=== PATIENT | female | born 1935 | race Caucasian/White ===

== ENCOUNTER 2018-06-11 11:23 | Emergency (ER) | payer MEDICARE, BC ==
--- OUTSIDE RECORDS SUMMARY | 2018-06-11 11:30 | XMS REPORT | Continuity of Care Document ---
:1935 External Reference #:[id number] Author Name Erin Johnson Care Team Providers Name Role Phone Deni Ernst MD Primary Care Physician Unavailable Payers Date Identification Numbers Payment Provider Subscriber Policy Number: [id number] Medicare Shanta Jackson PayID: [id number] [address] [place] [address] Policy Number: [id number] [facility] Shanta Jackson PayID: [id number] [address] [address] [place] [address] Advance Directives Description No Information Available Problems Description No Information Family History Description No Information Available Social History Type Date Description Comments Sex Unknown Marital Status Lives With Occupation Retired Tobacco Use Start: Unknown End: Patient is a former Started at age Unknown smoker 14-quit 2 years ago Smoking Status Reviewed: 05/18/18 Patient is a former Started at age smoker 14-quit 2 years ago Exercise Type/Frequency Exercises regularly Allergies, Adverse Reactions, Alerts Description No Known Drug Allergies Medications Medication Date Status Form Strength Qnty SIG Indications Ordering Provider Prednisone 04/24/ Active Tablets 10mg 20tab 4 tabs by J44.1 Kimmie 2019 s mouth x 2 Abimael, days, 3 tabs N.P. x 2 days, 2 tabs x 2 days, 1 tab x 2 days Augmentin 04/24/ Active Tablets 500-125mg 15tab 1 tab po tid J44.1 Kimmie 2019 s x 5 days Abimael, N.P. Proair HFA 04/24/ Active Aerosol 108(90Bas 8.500 2 puffs every J44.1 Kimmie 2019 e) gm 4-6 hours as Abimael, kia/Act needed N.P. Oxygen 02/04/ Active Misc 1unit please use o2 R09.02 Kimberly 2018 s at 2l/min MD Meghna during exertion and at night, pls provide pt with portable o2 concentrator Iron / Active 1 by mouth Unknown 0000 every other day Anoro Ellipta / Active Aerosol 62.5-25mc 1 inhalation Unknown 0000 g/Inh daily Calcium / Active 750mg 1 tab by Unknown 0000 mouth every day Aspirin / Active Tablets 81mg 1 tablet by Unknown [address] DR mouth on friday and Omeprazole / Active 1 tab by Unknown 0000 mouth daily Citalopram / Active 1 tab by Unknown 0000 mouth every day Atorvastatin / Active Tablets 20mg 1 by mouth Ballehaninn Calcium 0000 one time per a, day Shanda Patton MD Immunizations Description No Information Available Vital Signs Date Vital Result Comment 05/18/2018 12:55pm Height 62 inches 5'2" Weight 137.00 lb Heart Rate 80 /min BP Systolic Sitting 110 mmHg Lue regular cuff BP Diastolic Sitting 50 mmHg Lue regular cuff Respiratory Rate 12 /min O2 % BldC Oximetry 90 % BMI (Body Mass Index) 25.1 kg/m2 04/29/2018 10:00am Weight 137.12 lb Heart Rate 84 /min BP Systolic Sitting 120 mmHg BP Diastolic Sitting 60 mmHg Respiratory Rate 24 /min Body Temperature 98.4 F O2 % BldC Oximetry 97 % 04/27/2018 8:59am Weight 135.00 lb Heart Rate 100 /min 10 min 89 BP Systolic Sitting 108 mmHg BP Diastolic Sitting 50 mmHg Respiratory Rate 26 /min Body Temperature 98.2 F O2 % BldC Oximetry 93 % 10 min 97 04/24/2018 10:33am Weight 134.25 lb Heart Rate 102 /min 10 min 93 BP Systolic Sitting 98 mmHg BP Diastolic Sitting 48 mmHg Respiratory Rate 28 /min Body Temperature 97.4 F O2 % BldC Oximetry 90 % 10 min 91 02/10/2018 10:25am Weight 133.12 lb Heart Rate 78 /min BP Systolic Sitting 118 mmHg BP Diastolic Sitting 56 mmHg Respiratory Rate 23 /min Body Temperature 99.2 F O2 % BldC Oximetry 93 % 02/04/2018 8:39am Height 62 inches 5'2" Weight 131.38 lb Heart Rate 80 /min BP Systolic Sitting 146 mmHg Lue reg cuff BP Diastolic Sitting 78 mmHg Lue reg cuff Respiratory Rate 16 /min O2 % BldC Oximetry 94 % On Ra BMI (Body Mass Index) 24.0 kg/m2 01/28/2018 9:36am Weight 133.00 lb Heart Rate 82 /min BP Systolic Sitting 118 mmHg BP Diastolic Sitting 62 mmHg Respiratory Rate 22 /min Body Temperature 98.4 F O2 % BldC Oximetry 95 % 01/01/2018 11:12am Weight 133.00 lb Heart Rate 84 /min BP Systolic 104 mmHg BP Diastolic 56 mmHg Body Temperature 98.7 F O2 % BldC Oximetry 94 % 12/25/2017 8:56am Weight 130.38 lb Heart Rate 96 /min BP Systolic Sitting 116 mmHg BP Diastolic Sitting 66 mmHg Respiratory Rate 18 /min Body Temperature 98.1 F O2 % BldC Oximetry 94 % 12/22/2017 2:03pm Height 62 inches 5'2" Weight 129.00 lb Heart Rate 100 /min BP Systolic Sitting 114 mmHg Lue regular cuff BP Diastolic Sitting 64 mmHg Lue regular cuff Respiratory Rate 16 /min O2 % BldC Oximetry 93 % BMI (Body Mass Index) 23.6 kg/m2 Neck Circumference in inches 14 12/22/2017 9:57am Weight 129.38 lb Heart Rate 90 /min BP Systolic 134 mmHg BP Diastolic 70 mmHg Respiratory Rate 18 /min Body Temperature 98.9 F O2 % BldC Oximetry 93 % Results Description No Information Available Procedures Date Code Description Status 01/12/2018 59228 Diffusing Capacity Completed 01/12/2018 84290 Plethysmography Determination Lung Volumes & Per Airway Completed Resist 01/12/2018 49793 Pulmonary Stress Testing, Inc Measurement Heart Rate, Completed Oximetry Encounters Type Date Location Provider Dx Diagnosis Office Visit 04/29/2018 [facility] Chronic obstructive 9:29a Home [facility] pulmonary disease w (acute) exacerbation Office Visit 04/27/2018 [facility] Chronic obstructive 8:13a Home N.P. pulmonary disease w (acute) exacerbation Office Visit 04/24/2018 [facility].1 Chronic obstructive 10:25a Home N.P. pulmonary disease w (acute) exacerbation Office Visit 02/10/2018 [facility] Sharmabull, S80.812D Abrasion, left 10:33a Home N.P. lower leg, subsequent encounter Office Visit 02/04/2018 [facility]9 Chronic obstructive 9:00a [facility] Of pulmonary disease, [facility] unspecified R09.02 Hypoxemia C34.90 Malignant neoplasm of unsp part of unsp bronchus or lung Office Visit 01/28/2018 [facility]upal Sharmabull, S81.812D Laceration 9:14a Home N.P. 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, subsequent encounter Office Visit 12/22/2017 [facility].9 Chronic 2:30p Sleep [facility] Of MD dumont [facility] pulmonary disease, unspecified C34.90 Malignant neoplasm of unsp part of unsp bronchus or lung Plan of Treatment Future Appointment(s):07/31/2018 9:15 am - Kimberly Coffman MD at [facility]05/18/2018 - Kimberly Coffman MDJ44.9 Chronic obstructive pulmonary disease, unspecifiedNew Xrays:CT Chest W/O, Ordered: 05/18Follow up:6 weeks, CT prior (needs to wait for 6 months from last scan on )R09.02 HypoxemiaNew Orders:Pulse Oximetry Overnight, Ordered: C34.90 Malignant neoplasm of unspecified part of unspecified bronch
[2018-06-11 11:37] VITALS: BP 138/50
--- NOTE | 2018-06-11 11:45 | UC ---
Respiratory Complaint HPI - HPI Summary HPI Summary: 83 y/o female presents to the urgent care accompany by c/o productive cough and left shoulder pain for the past week. Pt reports she lives in [facility] and was doing some stretching exercise last week. she thinks she over did it. When she finished she had mild left shoulder which has worsen w/ the day. Now is it painful to raise her arm, or put her coat. Pain at rest is 3/10 and w/ movement is sharp 7/10 w/o any radiation. She has PMHX of COPD and he PCP recently advised her to use 02 at 2% at night time or when she does exercise. However, she only use it to sleep. Pt developed a dry cough about 5 days which now has progressed to wheezing since last night. The [place] nurse told her this morning she has low grade fever of 99.1F w/ wheezing and advised her to come to the clinic to be evaluated. She has an schedule appt to see her INFORMATION SYSTEMS ARCHITECT tomorrow. states her normal O2SAt ranges between 91-93%. Pt states nasal congestion w/ yellowish nasal discharge. She has been very active, drinking fluids and eating well, urinating well w/ normal BM. Pt denies chest pain, abdominal pain, dizziness, RICE, N/V/d, or numbness or tingling sensation over the left upper extremity. She has taken ibuprofen PO 400mg to alleviate pain, - History of Current Complaint Chief Complaint: UCUpperExtremity Stated Complaint: CONGESTION FEVER SHOULDER PAIN Time Seen by Provider: 06/11/18 11:42 Hx Obtained From: Patient ?: No - menopausal Onset/Duration: Gradual Onset, Lasting Weeks - 1 week, Still Present, Worse Since - last night w/ wheezing Timing: Constant Severity Initially: Mild Severity Currently: Moderate Pain Intensity: 5 - left shoulder pain Pain Scale Used: 0-10 Numeric Character: Cough: Productive, Sputum Description: - yellowish Aggravating Factors: Recumbent Position Alleviating Factors: Bronchodilator, OTC Meds - Ibuprofen PO 400mg Associated Signs And Symptoms: Positive: Fever - low grade fever, Wheezing, URI , Nasal Congestion. Negative: Chills, Sinus Discomfort Related History: Similar Episode/Dx as: - COPD exacerbation - Risk Factors Pulmonary Embolism Risk Factors: Negative Cardiac Risk Factors: Negative Pseudomonas Risk Factors: Negative Tuberculosis Risk Factors: Negative - Allergies/Home Medications Allergies/Adverse Reactions: Allergies Allergy/AdvReac Type Severity Reaction Status Date / Time No Known Allergies Allergy Verified 06/11/18 11:37 Home Medications: Home Medications Aspirin 81 mg PO SEE INSTRUCTIONS 06/11/18 [History Confirmed 06/11/18] Calcium Carbonate [Calcium] 1 chw PO DAILY WITH MEAL 06/11/18 [History Confirmed 06/11/18] Citalopram TAB* [Celexa TAB*] 20 mg PO DAILY 06/11/18 [History Confirmed ] Iron 90 mg PO DAILY WITH MEAL 06/11/18 [History Confirmed 06/11/18] Mirtazapine 15 mg PO DAILY WITH MEAL 06/11/18 [History Confirmed 06/11/18] Umeclidin/Vilant 62.5 MDI(NF) [ANORO 62.5/25 Ellipta DEVICE (NF)] 1 inh INH DAILY WITH MEAL 06/11/18 [History Confirmed 06/11/18] PMH/Surg Hx/FS Hx/Imm Hx Previously Healthy: Yes Respiratory History: COPD Cancer History: Lung Cancer - Dx 3 years ago s/p radiation - Surgical History Surgical History: None Surgery Procedure, Year, and Place: 1982 hystorectomy. 1992 gallbladder. 1997 hernia. 2000 leg - Family History Known Family History: Positive: Cardiac Disease - Social History Occupation: Retired Lives: With Family Alcohol Use: Rare Substance Use Type: None Smoking Status (MU): Former Smoker Review of Systems All Other Systems Reviewed And Are Negative: Yes Constitutional: Positive: Fever Skin: Positive: Negative Eyes: Positive: Negative ENT: Positive: Nasal Discharge - yellowish Respiratory: Positive: Cough - productive w/ yellowish phlegm, Other - mild wheezing Cardiovascular: Positive: Negative Gastrointestinal: Positive: Negative Genitourinary: Positive: Negative Motor: Positive: Negative Neurovascular: Positive: Negative Musculoskeletal: Positive: Decreased ROM - left shoulder, Other: - left shoulder pain s/p exercise Neurological: Positive: Negative Psychological: Positive: Negative Is Patient Immunocompromised?: No Physical Exam - Summary Physical Exam Summary: Vital Signs Reviewed: Yes General: well developed, well nourished old female sitting in the examining table w/o any apparent respiratory distress Eyes: Positive: Conjunctiva Clear - PERRLA, EOMI, fundi grossly normal ENT: Positive: Normal ENT inspection, Hearing grossly normal, Pharynx normal, Nasal congestion - edematous and erythematous nasal mucosa, Nasal drainage - yellowish drainage, TMs normal. Negative: Tonsillar swelling, Tonsillar exudate Neck: Positive: Supple, Nontender, No Lymphadenopathy Respiratory: no orthopnea or dyspnea. Able to speak in full sentences, no retractions or accessory muscle use, no tripod position, stridor, or head bobbing. Positive breath sounds bilaterally. diffuse scattered wheezing and rhonchi on b/L lungs, no crackles or rales. Cardiovascular: Positive: RRR, No Murmur, Pulses Normal, Brisk Capillary Refill Abdomen Description: Positive: Nontender, No Organomegaly, Soft. Negative: CVA Tenderness (R), CVA Tenderness (L) Bowel Sounds: Positive: Present Musculoskeletal Exam: LF shoulder: The L shoulder is with/without obvious asymmetry or deformity when compared to the R shoulder. posterior shoulder w/ ecchymosis and bruising, no crepitus. No bony deformity or prominence of humeral head. No erythema, warmth. No Point Tenderness to palpation over the clavicle, or scapula. positive tenderness over Acromioclavicular joint and humeral head with mild swelling, NT to palpation of the bicipital groove . NT to palpation of the muscles of the sternocleidomastoid, pectoralis, biceps/ triceps, deltoid, trapezius, . Limited ROM due to pain especially in adduction and abduction.on both passive and active, internal/external rotation, flexion/ extension. "empty can and drop arm test unable to perform due to pain. No axillary tenderness or lymphadenopathy. Normal sensation over the deltoid and fingers. Distal motor and neurovascular status is intact. Musculoskeletal: Positive: Strength Intact, ROM Intact, No Edema Neurological Exam: Normal Psychological Exam: Normal Skin Exam: Normal Triage Information Reviewed: Yes Vital Signs: Initial Vital Signs Temp 98.3 F 06/11/18 11:30 Pulse 93 06/11/18 11:30 Resp 20 06/11/18 11:30 BP 138/50 06/11/18 11:30 Pulse Ox 93 06/11/18 11:30 Respiratory Course/Dx - Course Course Of Treatment: 83 y/o female presents to the urgent care accompany by c/o productive cough and left shoulder pain for the past week. Pt reports she lives in [facility] and was doing some stretching exercise last week. she thinks she over did it. When she finished she had mild left shoulder pain which has worsen w/ the days. Now is it painful to raise her arm, or put her coat. Pain at rest is 3/10 and w/ movement is sharp 7/10 w/o any radiation. She has PMHX of COPD and her PCP recently advised her to use 02 at 2% at night time or when she does exercise. However, she only use it to sleep. Pt developed a dry cough about 5 days which now has progressed to wheezing since last night. The [place] nurse told her this morning she has low grade fever of 99.1F w/ wheezing and advised her to come to the clinic to be evaluated. She has an schedule appt to see her INFORMATION SYSTEMS ARCHITECT tomorrow. states her normal O2SAt ranges between 91-93%. Pt states nasal congestion w/ yellowish nasal discharge. She has been very active, drinking fluids and eating well, urinating well w/ normal BM. Pt denies chest pain, abdominal pain, dizziness, RICE, N/V/d, or numbness or tingling sensation over the left upper extremity. She has taken ibuprofen PO 400mg to alleviate pain Hx obtained. Pt is hemodynamically stable, A&OX3, O2Sat : 93%, Hx obtained. Pt w/ B/L lungs scattered wheezing and rhonchi on examination. Pt probably w/ a COPD exacerbation. Chest X-ray ordered: impression: COPD w/ stable pleural parenchymal scarring of left lower lung as per radiologist. the scarring is probably due to the lung cancer s/p radiation. Pt w/ COPD exacerbation. Pt given at the clinic Prednisone 60 mg PO and Duoneb treatment. Pt tolerated well medications and her lungs improved. Pt states feeling better. Pt will be tx w/ Rx Doxycycline PO , Prednisone taper dose and Inhaler. Strongly advised to f/u with her PCP for further management. LF shoulder X-ray ordered: Impression: AC joint arthritis observed as per radiologist. Shoulder immobilized with a shoulder sling for 2-3 days. Advised to f/u Orthopedic from [facility] who specialize on osteoarthritis for further management on her symptoms.D/c instructions explained. Pt understood and agreed w/ plan of care. - Differential Dx/Diagnosis Differential Diagnosis/HQI/PQRI: Asthma, Bronchitis, Exacerbation Of COPD, Influenza Provider Diagnosis: COPD with acute exacerbation, Left shoulder pain, Osteoarthritis of acromioclavicular joint Discharge - Sign-Out/Discharge Documenting (check all that apply): Patient Departure - D/c home All imaging exams completed and their final reports reviewed: Yes - Discharge Plan Condition: Stable Disposition: HOME Prescriptions: DOXYcycline CAP(*) [DOXYcycline 100MG CAP(*)] 100 mg PO BID #20 cap predniSONE TAB* [Deltasone 20 MG TAB*] 20 mg PO DAILY #8 tab Patient Education Materials: Osteoarthritis (ED), COPD (Chronic Obstructive Pulmonary Disease) (ED) Referrals: Dnei Ernst MD [Primary Care Provider] - 2 Days [facility] [Provider Group] - 2 Days Additional Instructions: 1- Take Prednisone PO taper dose as directed starting tomorrow. First loading dose given today. 2- Take Doxycycline PO as directed please 2 hrs before or after you take your Iron and Calcium pills for full absorption of antibiotic 2-Continue using the Inhaler at home to alleviate wheezing and cough as directed . Increase fluid intake, rest and eat well. Use your O2 at night. 3- If symptoms do not improve or worsen or your develop SOB with fever and severe wheezing please go immediately to the ER further evaluation and treatment. 4- F/u with your INFORMATION SYSTEMS ARCHITECT tomorrow to make sure symptoms are improvement. 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 Take Tylenol PO q6hrs prn to alleviate symptoms. Please f /u w/ Orthopedic Dr from Sports medicine who specialize in Osteoarthritis for further management. 6- Influenza A&B: negative - Billing Disposition and Condition Condition: STABLE Disposition: Home
[2018-06-11] MEDS ORDERED: Albuterol/Ipratropium NEB.SOL* Albuterol 2.5 MG/Ipratropium 0.5 MG 3 ML INH ONE (12:06)
[2018-06-11] MEDS ORDERED: predniSONE TAB* 20 MG PO ONE (12:06)
[2018-06-11 12:56] LABS: Influenza A Molecular NEGATIVE (Negative); Influenza B Molecular NEGATIVE (Negative)
== END 2018-06-11 13:30 | disposition home or self-care (01) ==
LOC: UCEAST 11:23
DX: J44.1 Chronic obstructive pulmonary disease with (acute) exacerbation (principal); M25.512 Pain in left shoulder; M19.012 Primary osteoarthritis, left shoulder; Z79.82 Long term (current) use of aspirin; Z79.899 Other long term (current) drug therapy; Z85.118 Personal history of other malignant neoplasm of bronchus and lung; Z92.3 Personal history of irradiation; Z87.891 Personal history of nicotine dependence
CPT/HCPCS: 71046; 99212; A9270-GY; G0463; J7512

== ENCOUNTER 2019-01-07 13:29 | Emergency (ER) | payer MEDICARE, BC ==
--- OUTSIDE RECORDS SUMMARY | 2019-01-07 13:34 | XMS REPORT | Summary of Care ---
:1935 Author Organization [facility] Address [address] [place] [address] Care Team Providers Name Role Phone Deni Ernst MD Primary Care Provider Kimmie Varghese NP Nurse Practitioner Primary Care Reason for Visit Reason Comments Lab Work Only done 11/17/18 Depression f/u celexa, PHQ-9 done (score 2) COPD f/u, seen Dr Coffman 07/31/18, O2 sat 94% on RA, still has a dry cough especially when she laughs Vascular Disease f/u PVD, seen Dr Campbell 08/25/18 with studies done, started on pletal (stopped d/t diarrhea) but switched to trental Extremity Weakness f/u, using scooter for long distances but walker rest of time, exercising at [employer] Encounter Details Date Type Department Care Team Description 12/04/2018 Office Visit Allison Deni Guzman MD PVD (peripheral vascular disease) ([facility]) (Primary Dx); [address] [facility] [address] [facility] Non-pressure chronic ulcer of left lower leg, limited to breakdown of skin ( [facility]); [place] [address] [place] [address] Hyperlipidemia, unspecified hyperlipidemia type; [phone] COPD with exacerbation (HCC); [phone] Stage 3 chronic kidney disease (HCC); (Fax) Major depressive disorder with single episode, in partial remission (HCC) Allergies No Known Allergiesdocumented as of this encounter (statuses as of 12/04/2018) Medications Medication Sig Dispensed Refills Start Date End Date Status Aspirin (SB LOW DOSE Take by mouth 0 Active ASA EC) 81 MG Oral DIRECTED. Twice Tab EC weekly, Mon and Thurs Calcium Lactate 750 Take by mouth 0 Active MG Oral Tab DAILY. Multiple Vitamin Take 1 Tab by mouth 0 Active (DAILY VITAMIN) Oral DAILY. Tab Omeprazole delayed Take 20 mg by mouth 0 Active rel cap 20 MG Oral DAILY. CAPSULE DELAYED RELEASE Ascorbic Acid Take by mouth 0 Active (VITAMIN C CR) 1000 DAILY. MG Oral Tab CR umeclidinium-VILANTE Take 1 INHL by 1 Each 11 12/17/2017 Active ROL (ANORO ELLIPTA) inhalation DAILY. 62.5-25 MCG/INH Inhalation AEROSOL POWDER, BREATH ACTIVATED gabapentin Take 1 Cap by mouth 90 Cap 11 04/07/2018 Active (NEURONTIN) 100 MG THREE TIMES DAILY. Oral Cap Additional information Patient taking differently: 200 mg Oral QHS, Reported on 07/21/2018 5:01 PM albuterol HFA (PROAIR Take 2 Puffs by 18 g 11 04/07/2018 Active HFA) 108 (90 Base) inhalation EVERY MCG/ACT Inhalation SIX HOURS Aero Soln NEEDED (for SOB). citalopram (CELEXA) TAKE 1 TAB BY 30 Tab 5 06/01/2018 Active 10 MG Oral Tab MOUTH DAILY. ASPERCREME LIDOCAINE by Apply 0 Active 4 % Apply externally externally route. Patch Apply left shoulder, on am and off pm atorvastatin Take 1 Tab by 30 Tab 11 08/13/2018 Active (LIPITOR) 20 MG Oral mouth DAILY. TabIndications: PVD (peripheral vascular disease) (HCC), Hyperlipidemia, unspecified hyperlipidemia type pentoxifylline Take 400 mg by 270 Tab 1 09/10/2018 Active (TRENTAL) 400 MG Oral mouth THREE TIMES Tab CR DAILY. cilostazol (PLETAL) Take 1 Tab by 60 Tab 6 08/25/2018 Discontinued 100 MG Oral mouth TWICE 019 (Alternative TabIndications: PVD DAILY. Therapy) (peripheral vascular disease) (HCC) documented as of this encounter (statuses as of 12/04/2018) Active Problems Problem Noted Date Non-pressure chronic ulcer of left lower leg, limited to breakdown of skin Stage 3 chronic kidney disease 01/27/2018 Major depression, single episode Nutritional deficiency Anemia, unspecified Other idiopathic peripheral autonomic neuropathy COPD with exacerbation Gastro-esophageal reflux disease with esophagitis SCC of lung (small cell carcinoma) Overview: left, had 4 radiation tx, no chemo,last PET scan in [place] 08/2017 PVD (peripheral vascular disease) Pneumonia documented as of this encounter (statuses as of 12/04/2018) Immunizations Name Administration Dates Next Due Influenza Vaccine High Dose 11/22/2017, 11/22/2016, 11/16/2015, 01/16/2015 Influenza Virus Vaccine Pres Free 6-35 12/20/2013 Months PNEUMOCOCCAL POLYSACCHARIDE VACCINE 12/24/2005 Pneumococcal Conjugate(13 Valent) 03/31/2017, 07/18/2014 TETANUS & DIPHTHERIA TOXOID (OVER 7 11/30/2015 YRS) ZOSTER (ZOSTAVAX) VACCINE 11/20/2006 documented as of this encounter Social History Tobacco Use Types Packs/Day Years Used Date Former Smoker Quit: 03/17/2016 Smokeless Tobacco: Never Used Comments: smoked 1.5 ppd for years Alcohol Use Drinks/Week oz/Week Comments Yes Sex Assigned at Date Recorded Not on file Job Start Date Occupation Industry Not on file Not on file Not on file Travel History Travel Start Travel End No recent travel history available. documented as of this encounter Last Filed Vital Signs Vital Sign Reading Time Taken Comments Blood Pressure 106/52 12/04/2018 2:14 PM EDT Pulse 68 12/04/2018 2:14 PM EDT Temperature - - Respiratory Rate - - Oxygen Saturation 94% 12/04/2018 2:14 PM EDT Inhaled Oxygen Concentration - - Weight 61.7 kg (136 lb) 12/04/2018 2:14 PM EDT Height 157.5 cm (5' 2") 12/04/2018 2:14 PM EDT Body Mass Index 24.87 12/04/2018 2:14 PM EDT documented in this encounter Progress Notes Deni Ernst MD - 12/04/2018 1:40 PM EDT PATIENT: Shanta Jackson : 1935 DATE OF SERVICE: 12/04/2018 CHIEF COMPLAINT: Chief Complaint Patient presents with Lab Work Only done 11/17/18 Depression f/u celexa, PHQ-9 done (score 2) COPD f/u, seen Dr Coffman 07/31/18, O2 sat 94% on RA, still has a dry cough especially when she laughs Vascular Disease f/u PVD, seen Dr Campbell 08/25/18 with studies done, started on pletal ( stopped d/t diarrhea) but switched to trental Extremity Weakness f/u, using scooter for long distances but walker rest of time, exercising at [employer] Subjective HISTORY OF PRESENT ILLNESS: Shanta Jackson is a 83-y.o. female. HPI Doing well overall, taking Trental for peripheral vascular disease. Does not notice a change in herclaudication pattern. Walks short distances and uses scooter for long distances. Exercising regularly at the gym. Breathing has been stable. Saw Dr. Coffman who noticed that she could benefit from nighttime oxygen. No other changes made to her therapy. Depression controlled. Will leave dose of Celexa as is since prior dose reduction trial did not go well. Had lab work recently done showing unremarkable CBC comprehensive profile TSH and lipid profile. Past Medical History: Diagnosis Date Anemia, unspecified COPD with exacerbation (HCC) Gastro-esophageal reflux disease with esophagitis Major depression, single episode Nutritional deficiency Other idiopathic peripheral autonomic neuropathy Pneumonia PVD (peripheral vascular disease) (HCC) SCC of lung (small cell carcinoma) (HCC) left, had 4 radiation tx, no chemo,last PET scan in [place] 08/2017 Family History Problem Relation Age of Onset Arthritis Mother RA, from sepsis Heart Disease Father from massive [place] Current Outpatient Medications Medication Sig albuterol HFA (PROAIR HFA) 108 (90 Base) MCG/ACT Inhalation Aero Soln Take 2 Puffs by inhalation EVERY SIX HOURS NEEDED (for SOB). Ascorbic Acid (VITAMIN C CR) 1000 MG Oral Tab CR Take by mouth DAILY. ASPERCREME LIDOCAINE 4 % Apply externally Patch by Apply externally route. Apply left shoulder, on am and off pm Aspirin (SB LOW DOSE ASA EC) 81 MG Oral Tab EC Take by mouth DIRECTED. Twice weekly, Fri and atorvastatin (LIPITOR) 20 MG Oral Tab Take 1 Tab by mouth DAILY. Calcium Lactate 750 MG Oral Tab Take by mouth DAILY. citalopram (CELEXA) 10 MG Oral Tab TAKE 1 TAB BY MOUTH DAILY. gabapentin (NEURONTIN) 100 MG Oral Cap Take 1 Cap by mouth THREE TIMES DAILY. (Patient takingdifferently: Take 200 mg by mouth EVERY BEDTIME.) Multiple Vitamin (DAILY VITAMIN) Oral Tab Take 1 Tab by mouth DAILY. Omeprazole delayed rel cap 20 MG Oral CAPSULE DELAYED RELEASE Take 20 mg by mouth DAILY. pentoxifylline (TRENTAL) 400 MG Oral Tab CR Take 400 mg by mouth THREE TIMES DAILY. umeclidinium-VILANTEROL (ANORO ELLIPTA) 62.5-25 MCG/INH Inhalation AEROSOL POWDER, BREATH ACTIVATED Take 1 INHL by inhalation DAILY. No current facility-administered medications for this visit. No Known Allergies Social History Socioeconomic History Marital status: Spouse name: Not on file Number of children: Not on file Years of education: Not on file Highest education level: Not on file Occupational History Not on file Social Needs Financial resource strain: Not on file Food insecurity: Worry: Not on file Inability: Not on file Transportation needs: Medical: Not on file Non-medical: Not on file Tobacco Use Smoking status: Former Smoker Last attempt to quit: 03/17/2016 Years since quittin.7 Smokeless tobacco: Never Used Tobacco comment: smoked 1.5 ppd for years Substance and Sexual Activity Alcohol use: Yes Drug use: No Sexual activity: Not on file Lifestyle Physical activity: Days per week: Not on file Minutes per session: Not on file Stress: Not on file Relationships Social connections: Talks on phone: Not on file Gets together: Not on file Attends sabianist service: Not on file Active member of club or organization: Not on file Attends meetings of clubs or organizations: Not on file Relationship status: Not on file Intimate partner violence: Fear of current or ex partner: Not on file Emotionally abused: Not on file Physically abused: Not on file Forced sexual activity: Not on file Other Topics Concern Not on file Social History Narrative Not on file Over the last 2 weeks, have you been feeling down, depressed, anxious, or hopeless?: 0 Over the past 2 weeks, have you felt little interest or pleasure in doing things ?: 1 Trouble falling or staying asleep, or sleeping too much?: 0 Feeling tired or having little energy?: 0 Poor appetite or overeating?: 1 Feeling bad about yourself or that you are a failure or have let yourself or your family down?: 0 Trouble concentrating on things, such as reading the newspaper or watching TV?: 0 Moving or speaking so slowly that other people notice OR being fidgety and restless?: 0 Thoughts that you would be better off or of hurting yourself in some way?: 0 PHQ-9 TOTAL SCORE: 2 REVIEW OF SYSTEMS: Review of Systems Constitutional: Positive for malaise/fatigue. Negative for fever and weight loss. HENT: Negative for congestion. Eyes: Negative for blurred vision. Respiratory: Positive for shortness of breath. Cardiovascular: Negative for chest pain and leg swelling. Gastrointestinal: Negative for abdominal pain. Genitourinary: Negative for frequency. Musculoskeletal: Negative for falls and joint pain. Skin: Negative for rash. Neurological: Positive for focal weakness. Negative for dizziness, seizures, loss of consciousness and headaches. Endo/Heme/Allergies: Negative for polydipsia. Psychiatric/Behavioral: Negative. Negative for depression. The patient is not nervous/anxious. Objective PHYSICAL EXAM: VITALS: BP 106/52 | Pulse 68 | Ht 5' 2" (1.575 m) | Wt 136 lb (61.7 kg) | SpO2 94% | BMI 24.87kg/m Body mass index is 24.87 kg/m. Physical Exam Reveals an elderly woman in no distress. HEENT is unremarkable. Neck has no nodes in the anterioror posterior cervical chains, or in the supraclavicular spaces, no JVD or thyromegaly. Lungs clear decreased breath sounds. Heart regular. Abdomen soft and nontender. Extremities with trace edema.No open areas on the skin. MSE: Mood not sad, affect not flat. No suicidal or homicidal ideation.No abnormality in thought process or thought content. Insight and judgement good. Well kempt. ASSESSMENT / IMPRESSION: ICD-9-CM ICD-10-CM 1. PVD (peripheral vascular disease) ([facility]) 443.9 I73.9 2. Non-pressure chronic ulcer of left lower leg, limited to breakdown of skin ( [facility]) 707.10 L97.921 3. Hyperlipidemia, unspecified hyperlipidemia type 272.4 E78.5 4. COPD with exacerbation ([facility]) 491.21 J44.1 5. Stage 3 chronic kidney disease ([facility]) 585.3 N18.3 6. Major depressive disorder with single episode, in partial remission ([facility]) 296.25 F32.4 Her peripheral vascular disease is stable Her leg ulcer is healed Her hyperlipidemia is controlled Her COPD is treated. Her stage III chronic kidney disease is stable Her depression is stable She will return in March or April and we will check CBC comprehensive profile and lipid profileprior to the visit for diagnoses of peripheral vascular disease and COPD author: Deni Ernst MD 12/04/2018 14:38 documented in this encounter Plan of Treatment Date Type Specialty Care Team Description 03/02/2019 Office Visit Vascular Surgery Shanda Campbell MD [address] [place] [address] [phone] Health Maintenance Due Date Last Done Comments MEDICARE ANNUAL WELLNESS 1935 VISIT ZOSTER IMMUNIZATION SERIES 01/15/2007 11/20/2006 (2 of 3) INFLUENZA VACCINE (#1) 2018 11/22/2017, 11/22/2016, 11/16/2015, Additional history exists FALL RISK ASSESSMENT 07/22/2019 07/21/2018, 07/21/2018 DEPRESSION SCREENING 12/05/2019 12/04/2018, 12/04/2018 PNEUMOCOCCAL 65+YRS Completed 03/31/2017, 07/18/2014, 12/24/2005 HPV IMMUNIZATION SERIES Aged Out No longer eligible based on patient's age to complete this topic MENINGOCOCCAL VACCINE IMM Aged Out No longer eligible based on patient's age to complete this topic documented as of this encounter Goals Goal Patient Goal Associated Recent Patient-Stated? Author Type Problems Progress Depression Depression 2 (12/04/2018 No Klever screen (PHQ-9) 2:13 PM EDT) MD Deni total score < 5 Note: This is an individualized treatment (depression) goal for Shanta Jackson: Displayed above is your goal for a depression screening (PHQ-9) score that would indicate good control of your depression. Keep a regular sleep schedule Lifestyle No Deni Ernst MD Note: This is an individualized lifestyle goal for Shanta Jackson: Please maintain a regular sleep schedule. This may help with some symptoms of depression. Keep immunizations current Lifestyle No Deni Ernst MD Note: This is an individualized lifestyle goal for Shanta Jackson: Please be sure to keep up-to-date on recommended immunizations. For example, this would include a yearly influenza vaccine. Immunization status can be seen by looking at the Health Maintenance sections of your [facility], Plan of Care, and any After Visit Summaries. Take all prescribed medications as directed Self-management No Deni Ernst MD Note: This is an individualized self-management goal for Shanta Jackson: Please take all prescribed medications as directed. 1. Do not skip doses. If you cannot afford your medications, talk with your doctor. 2. Use a pill reminder system such as a pill box if needed. Your pharmacist can help you with this. 3. Contact your Pharmacy 5 days before your medication runs out. If you cannot take your medications for any reasons, talk with your doctor. 4. Please bring all of your medication bottles and inhalers (or a list of all your medications/inhalers) with you to every visit. Potential barriers to meeting all of your care plan goals will continue to be addressed on an ongoing basis. documented as of this encounter Results Not on filedocumented in this encounter Visit Diagnoses Diagnosis PVD (peripheral vascular disease) (HCC) - Primary Peripheral vascular disease, unspecified Non-pressure chronic ulcer of left lower leg, limited to breakdown of skin (HCC ) Ulcer of lower limb, unspecified Hyperlipidemia, unspecified hyperlipidemia type COPD with exacerbation (HCC) Obstructive chronic bronchitis with exacerbation Stage 3 chronic kidney disease (HCC) Major depressive disorder with single episode, in partial remission (HCC) documented in this encounter Insurance Payer Benefit Plan / Subscriber ID Effective Dates Phone Address Type Group MEDICARE MEDICARE PART xxxxxxxxxxx 1999-[facility] Medicare A & B t [facility] xxxxxxxxxxxx 2010-[facility] Blue t Cross/Blue Shield documented as of this encounter
--- NOTE | 2019-01-07 14:01 | UC ---
Respiratory Complaint HPI - HPI Summary HPI Summary: 83-year-old female who has had runny nose for about 2 days according to the who during the night developed a moist cough and some shortness of breath. She is on oxygen at home normally and when she goes out to physical therapy. She states that she was a previous smoker however no longer smokes. She denies any pain other than body aches. Her oximetry upon entrance into the room is at 88%. - History of Current Complaint Chief Complaint: UCRespiratory Stated Complaint: URI Time Seen by Provider: 01/07/19 13:44 Hx Obtained From: Patient, Family/Flume Tender ?: No Onset/Duration: Gradual Onset Timing: Constant Severity Initially: Moderate Severity Currently: Moderate Pain Intensity: 0 Character: Cough: Productive Aggravating Factors: Exertion Alleviating Factors: Nothing - Moist Associated Signs And Symptoms: Positive: Dyspnea - Shortness of breath started during the night and this morning., Fever - Patient had a temperature of 100.1 at home., URI, Nasal Congestion - Allergies/Home Medications Allergies/Adverse Reactions: Allergies Allergy/AdvReac Type Severity Reaction Status Date / Time No Known Allergies Allergy Verified 01/07/19 13:51 PMH/Surg Hx/FS Hx/Imm Hx Previously Healthy: Yes Respiratory History: COPD Cancer History: Lung Cancer - Surgical History Surgical History: None Surgery Procedure, Year, and Place: 1982 hystorectomy. 1992 gallbladder. 1997 hernia. 2000 leg - Family History Known Family History: Positive: Cardiac Disease - Social History Alcohol Use: Rare Substance Use Type: None Smoking Status (MU): Former Smoker Review of Systems All Other Systems Reviewed And Are Negative: Yes Constitutional: Positive: Fever, Chills ENT: Positive: Nasal Discharge, Sinus Congestion Respiratory: Positive: Shortness Of Breath, Cough Is Patient Immunocompromised?: No Physical Exam Triage Information Reviewed: Yes Appearance: Well-Appearing, No Pain Distress, Well-Nourished Vital Signs: Initial Vital Signs Temp 101 F 01/07/19 13:44 Pulse 102 01/07/19 13:44 Resp 20 01/07/19 13:44 BP 105/49 01/07/19 13:44 Pulse Ox 88 01/07/19 13:44 Vital Signs Reviewed: Yes Eyes: Positive: Discharge - Right conjunctiva is mildly inflamed with some light yellow drainage at the inner canthus. ENT: Positive: Pharynx normal, Nasal congestion, TMs normal - Patient wears hearing aids bilaterally., Uvula midline Neck: Positive: Supple, Nontender, No Lymphadenopathy Respiratory: Positive: No respiratory distress - Oximetry is 88% with oxygen., No accessory muscle use, Rhonchi - Scattered rhonchi throughout all lung merlos , moist cough. Cardiovascular: Positive: No Murmur, Pulses Normal, Brisk Capillary Refill, Tachycardia - Mild tachycardia. Abdomen Description: Positive: Nontender, No Organomegaly, Soft. Negative: CVA Tenderness (R), CVA Tenderness (L) Bowel Sounds: Positive: Present Musculoskeletal Exam: Normal Neurological Exam: Normal Psychological Exam: Normal Skin Exam: Normal Respiratory Course/Dx - Course Course Of Treatment: Patient is on 3 L of O2 here. She appears comfortable however because she is mildly tachycardic, fever and chills, hypoxic I am going to send her to the emergency room for further treatment. We discussed transport via ambulance and the is agreeable however the patient herself does not agree to ambulance transport. Therefore she did sign out AGAINST MEDICAL ADVICE however the said he would take her directly to the emergency room. The patient is awake and alert and able to make her own decision but I did stress the importance of an ambulance transport and she continues to want to sign out AGAINST MEDICAL ADVICE and go to the emergency room by private car. - Differential Dx/Diagnosis Provider Diagnosis: Dyspnea, Fever Discharge ED - Sign-Out/Discharge Documenting (check all that apply): Patient Departure All imaging exams completed and their final reports reviewed: No Studies - Discharge Plan Condition: Fair Disposition: AGAINST MEDICAL ADVICE Referrals: Deni Ernst MD [Primary Care Provider] - Additional Instructions: It is advised that you go to the emergency room for further treatment by ambulance transport however because you are signing out AGAINST MEDICAL ADVICE it is imperative to continue to proceed to the emergency room for further treatment. - Billing Disposition and Condition Condition: FAIR Disposition: Against Medical Advice
[2019-01-07 14:27] VITALS: BP 105/49
== END 2019-01-07 14:06 | disposition left against medical advice (07) ==
LOC: UCEAST 13:29
DX: R06.00 Dyspnea, unspecified (principal); R50.9 Fever, unspecified; R05 Cough; R00.0 Tachycardia, unspecified; R09.02 Hypoxemia; R09.81 Nasal congestion; R09.89 Other specified symptoms and signs involving the circulatory and respiratory systems; R06.02 Shortness of breath; H57.89 Other specified disorders of eye and adnexa; J44.9 Chronic obstructive pulmonary disease, unspecified; Z87.891 Personal history of nicotine dependence; Z85.118 Personal history of other malignant neoplasm of bronchus and lung
CPT/HCPCS: 99202; G0463

== ENCOUNTER 2019-01-07 14:24 | Emergency (ER) | payer MEDICARE, BC ==
[2019-01-07] MEDS ORDERED: cefTRIAXone(*) 1 GM in NS 0.9% 50 ML* 50 ML IVPB ONE (14:43)
[2019-01-07] MEDS ORDERED: NS 0.9% 1000 ML** 1,000 ML IV ONE (14:43)
[2019-01-07 15:20] LABS: ABS Basophils 0.1 10^3/ul (0-0.2); ABS Eosinophils 0.2 10^3/ul (0-0.6); ABS Lymphocytes 1.2 10^3/ul (1.0-4.8); ABS Monocytes 1.2 10^3/ul (0-0.8); ABS Neutrophils 9.1 10^3/ul (1.5-7.7); Eosinophil % 1.6 %; Hematocrit 30 % (35-47); Lymphocyte % 10.2 %; Mean Corpuscular HGB Conc 34 g/dL (31-36); Mean Corpuscular Hemoglobin 31 pg (27-31); Mean Corpuscular Volume 92 fL (80-97); Mean Platelet Volume 8.4 fL (7.4-10.4); Platelet Count 217 10^3/uL (150-450); Red Blood Count 3.22 10^6 /uL (3.70-4.87); Red Cell Distribution Width 14 % (10-15); White Blood Count 11.7 10^3/uL (3.5-10.8)
[2019-01-07 15:39] VITALS: BP 106/75
[2019-01-07 15:39] LABS: Albumin 3.7 g/dL (3.2-5.2); Albumin/Globulin Ratio 1.2 (1-3); BUN/Creatinine Ratio 17.6 (8-20); C Reactive Protein 66.24 mg/L (<8.01); Calcium 9.4 mg/dL (8.6-10.3); EGFR African American 58.5 (>60); EGFR Non-African American 48.3 (>60); Globulin 3.1 g/dL (2-4); Potassium 4.2 mmol/L (3.5-5.0); Total Bilirubin 0.7 mg/dL (0.2-1.0); Total Protein 6.8 g/dL (6.4-8.9); Troponin I 0.02 ng/mL (<0.04)
[2019-01-07 15:41] LABS: Influenza A Molecular NEGATIVE (Negative); Influenza B Molecular NEGATIVE (Negative)
--- NOTE | 2019-01-07 16:28 | ED ---
Shortness of Breath - HPI Summary HPI Summary: This patient is an 83-year-old female with a history of COPD, PNA and shortness of breath presenting to the ED with 1 day of cough. She was seen at urgent care and was sent here for further evaluation due to an elevated temp, tachypnea , needing 3 L of O2 to maintain 95% and cough and congestion. Due to her history of PNA, she is evaluated here in the ED. She denies any history of congestive heart failure. She denies any chest pain. She states she had some chills last evening, but denies any diaphoresis. She states she has felt otherwise well. She does endorse some rhinorrhea 2 days. She has been taking Tylenol at bedtime. - History of Current Complaint Chief Complaint: EDShortnessOfBreath Time Seen by Provider: 01/07/19 14:35 Hx Obtained From: Patient, Family/Tread Booker Onset/Duration: Gradual Onset Timing: Constant Associated Signs & Symptoms: Cough (Nonproductive) - Risk Factors Pseudomonas: Chronic Lung Disease - Allergy/Home Medications Allergies/Adverse Reactions: Allergies Allergy/AdvReac Type Severity Reaction Status Date / Time No Known Allergies Allergy Verified 01/07/19 14:27 Home Medications: Home Medications Atorvastatin* [Lipitor*] 20 mg PO DAILY 01/07/19 [History Confirmed 01/07/19] Calcium Carbonate [Calcium] 500 mg PO DAILY 01/07/19 [History Confirmed 01/07/19 ] Gabapentin CAP(*) [Neurontin 100 mg CAP(*)] 100 mg PO TID 01/07/19 [History Confirmed 01/07/19] Multivitamins/Minerals TAB* [Theragran/minerals TAB*] 1 tab PO DAILY 01/07/19 [ History Confirmed 01/07/19] Pentoxifylline CR TAB* [TRENtal CR TAB*] 400 mg PO TID 01/07/19 [History Confirmed 01/07/19] PMH/Surg Hx/FS Hx/Imm Hx Previously Healthy: Yes Endocrine/Hematology History: Denies: Hx Diabetes, Hx Thyroid Disease Cardiovascular History: Denies: Hx Hypertension Respiratory History: Reports: Hx Chronic Obstructive Pulmonary Disease (COPD) Denies: Hx Asthma GI History: Denies: Hx Ulcer - Cancer History Cancer Type, 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 1992 gallbladder. 1997 hernia. 2000 leg - Immunization History Date of Influenza Vaccine: 11/2018 Hx Pertussis Vaccination: No Immunizations Up to Date: Yes Infectious Disease History: No Infectious Disease History: Denies: Hx Hepatitis, Hx Human Immunodeficiency Virus (HIV), Traveled Outside the [place] in Last 30 Days - Family History Known Family History: Positive: Cardiac Disease - Social History Occupation: Unemployed Lives: With Family Alcohol Use: Rare Hx Substance Use: No Substance Use Type: Reports: None Smoking Status (MU): Former Smoker Review of Systems Negative: Fever, Chills, Fatigue, Skin Diaphoresis Negative: Palpitations, Chest Pain Positive: Shortness Of Breath, Cough Genitourinary: Negative Positive: no symptoms reported, see HPI Negative: Arthralgia, Myalgia Neurological: Negative All Other Systems Reviewed And Are Negative: Yes Physical Exam Triage Information Reviewed: Yes Vital Signs On Initial Exam: Initial Vitals Temp Pulse Resp BP Pulse Ox 99.4 F 105 20 119/62 92 01/07/19 14:27 01/07/19 14:27 01/07/19 14:27 01/07/19 14:27 01/07/19 14:27 Vital Signs Reviewed: Yes Appearance: Positive: Well-Appearing, Well-Nourished Skin: Positive: Warm, Skin Color Reflects Adequate Perfusion Head/Face: Positive: Normal Head/Face Inspection Eyes: Positive: EOMI, EMILIANA, Conjunctiva Clear Neck: Positive: Supple, No Lymphadenopathy Respiratory/Lung Sounds: Positive: Rhonchi, Wheezes. Negative: Unable to speak in full sentences, Fatigue Cardiovascular: Positive: RRR, Pulses are Symmetrical in both Upper and Lower Extremities Musculoskeletal: Positive: Normal, Strength/ROM Intact Neurological: Positive: Speech Normal Psychiatric: Positive: Affect/Mood Appropriate AVPU Assessment: Alert Procedures - Sedation Patient Received Moderate/Deep Sedation with Procedure: No Diagnostics - Vital Signs Vital Signs Temp Pulse Resp BP Pulse Ox 01/07/19 15:17 96 01/07/19 15:06 86 106/75 95 01/07/19 14:35 103 141/81 89 01/07/19 14:27 99.4 F 105 20 119/62 92 - Laboratory Lab Results: Lab Results 01/07/19 01/07/19 01/07/19 Range/Units 15:03 15:03 15:03 WBC 11.7 H (3.5-10.8) 10^3/uL RBC 3.22 L (3.70-4.87) 10^6 /uL Hgb 10.0 L (12.0-16.0) g/dL Hct 30 L (35-47) % MCV 92 (80-97) fL MCH 31 (27-31) pg MCHC 34 (31-36) g/dL RDW 14 (10-15) % Plt Count 217 (150-450) 10^3/uL MPV 8.4 (7.4-10.4) fL Neut % (Auto) 77.8 % Lymph % (Auto) 10.2 % [place] % (Auto) 9.9 % Eos % (Auto) 1.6 % Baso % (Auto) 0.5 % Absolute Neuts (auto) 9.1 H (1.5-7.7) 10^3/ul Absolute Lymphs (auto) 1.2 (1.0-4.8) 10^3/ul Absolute Monos (auto) 1.2 H (0-0.8) 10^3/ul Absolute Eos (auto) 0.2 (0-0.6) 10^3/ul Absolute Basos (auto) 0.1 (0-0.2) 10^3/ul Absolute Nucleated RBC 0.0 10^3/ul Nucleated RBC % 0.0 Sodium 139 (135-145) mmol/L Potassium 4.2 (3.5-5.0) mmol/L Chloride 103 (101-111) mmol/L Carbon Dioxide 30 (22-32) mmol/L Anion Gap 6 (2-11) mmol/L BUN 19 (6-24) mg/dL Creatinine 1.08 H (0.51-0.95) mg/dL Est GFR ( Amer) 58.5 (>60) Est GFR (Non-Af Amer) 48.3 (>60) BUN/Creatinine Ratio 17.6 (8-20) Glucose 108 H (70-100) mg/dL Lactic Acid 0.8 (0.5-2.0) mmol/L Calcium 9.4 (8.6-10.3) mg/dL Total Bilirubin 0.70 (0.2-1.0) mg/dL AST 21 (13-39) U/L ALT 14 (7-52) U/L Alkaline Phosphatase 76 (34-104) U/L Troponin I 0.02 (<0.04) ng/mL C-Reactive Protein 66.24 H (<8.01) mg/L B-Natriuretic Peptide (<=100) pg/mL Total Protein 6.8 (6.4-8.9) g/dL Albumin 3.7 (3.2-5.2) g/dL Globulin 3.1 (2-4) g/dL Albumin/Globulin Ratio 1.2 (1-3) Influenza A (Rapid) (Negative) Influenza B (Rapid) (Negative) 01/07/19 01/07/19 Range/Units 15:03 15:10 WBC (3.5-10.8) 10^3/uL RBC (3.70-4.87) 10^6 /uL Hgb (12.0-16.0) g/dL Hct (35-47) % MCV (80-97) fL MCH (27-31) pg MCHC (31-36) g/dL RDW (10-15) % Plt Count (150-450) 10^3/uL MPV (7.4-10.4) fL Neut % (Auto) % Lymph % (Auto) % [place] % (Auto) % Eos % (Auto) % Baso % (Auto) % Absolute Neuts (auto) (1.5-7.7) 10^3/ul Absolute Lymphs (auto) (1.0-4.8) 10^3/ul Absolute Monos (auto) (0-0.8) 10^3/ul Absolute Eos (auto) (0-0.6) 10^3/ul Absolute Basos (auto) (0-0.2) 10^3/ul Absolute Nucleated RBC 10^3/ul Nucleated RBC % Sodium (135-145) mmol/L Potassium (3.5-5.0) mmol/L Chloride (101-111) mmol/L Carbon Dioxide (22-32) mmol/L Anion Gap (2-11) mmol/L BUN (6-24) mg/dL Creatinine (0.51-0.95) mg/dL Est GFR ( Amer) (>60) Est GFR (Non-Af Amer) (>60) BUN/Creatinine Ratio (8-20) Glucose (70-100) mg/dL Lactic Acid (0.5-2.0) mmol/L Calcium (8.6-10.3) mg/dL Total Bilirubin (0.2-1.0) mg/dL AST (13-39) U/L ALT (7-52) U/L Alkaline Phosphatase (34-104) U/L Troponin I (<0.04) ng/mL C-Reactive Protein (<8.01) mg/L B-Natriuretic Peptide 73 (<=100) pg/mL Total Protein (6.4-8.9) g/dL Albumin (3.2-5.2) g/dL Globulin (2-4) g/dL Albumin/Globulin Ratio (1-3) Influenza A (Rapid) Negative (Negative) Influenza B (Rapid) Negative (Negative) Result Diagrams: 01/07/19 15:03 01/07/19 15:03 Lab Statement: Any lab studies that have been ordered have been reviewed, and results considered in the medical decision making process. Course/Dx - Course Course Of Treatment: During his course of treatment, the patient is evaluated for cough without production, shortness of breath per and chills last night. Took Tylenol last evening. She requires 2L O2 at home at bedtime and with exercise exertion on "the machines." She states otherwise she does not ambulate far and around the house, does not require O2 and never really feels SOB. She has been denying any SOB for the past few days, but noticed she appeared SOB, so increased her O2. Labs obtained which show a slightly elevated WBC at 11k, CRP 66, influenza negative. Patient feeling well, non- diaphoretic. CXR shows small pleural effusion without evidence of PNA. She remains on 1.5L O2 at rest and sat at 99%. Pt is stable. Lives with and states he is comfortable taking her home. Pt would like discharged. Levaquin sent to rx as pt has hx of COPD. Will treat for symptoms. Dx with pleural effusion and fever and cough. - Diagnoses Differential Diagnosis/HQI/PQRI: Positive: Bronchitis, Pneumonia Provider Diagnoses: Pleural effusion Discharge ED - Sign-Out/Discharge Documenting (check all that apply): Patient Departure - Discharge Plan Condition: Stable Disposition: HOME Prescriptions: Levofloxacin TAB* [Levaquin TAB*] 500 mg PO DAILY #5 tab Referrals: Deni Ernst MD [Primary Care Provider] - Additional Instructions: You were seen in the Emergency Department for cough and shortness of breath If you develop any worsening or changing symptoms, please return to the ED You may need more oxygen at this time You may get over the counter mucinex or robitussin for some relief Please follow up with your primary care provider in the next 2-3 days It was a pleasure taking care of you today - Billing Disposition and Condition Condition: STABLE Disposition: Home
== END 2019-01-07 17:20 | disposition home or self-care (01) ==
LOC: ED 14:24
DX: J90 Pleural effusion, not elsewhere classified (principal); J44.9 Chronic obstructive pulmonary disease, unspecified; Z99.81 Dependence on supplemental oxygen; Z79.899 Other long term (current) drug therapy; Z87.891 Personal history of nicotine dependence; R50.9 Fever, unspecified; R00.0 Tachycardia, unspecified; R09.02 Hypoxemia; R09.81 Nasal congestion; R09.89 Other specified symptoms and signs involving the circulatory and respiratory systems; R06.02 Shortness of breath; H57.89 Other specified disorders of eye and adnexa; Z85.118 Personal history of other malignant neoplasm of bronchus and lung
CPT/HCPCS: 36415; 71046; 80053; 83605; 83880; 84484; 85025; 86140; 93005; 96361; 96365; 96366; 99202; 99282; G0463; J0696